=== PATIENT | male | born 1965 | race Caucasian/White ===

== ENCOUNTER 2017-12-03 16:05 | Observation (INO) | payer BC ==
[2017-12-03] VITALS (8 sets, daily range): BP systolic 114–162; BP diastolic 64–90; PULSE 99–128; RESP 18–20; TEMP 98.2–98.7; O2SAT 91–95
[~2017-12-03] VITALS: Ht 182.9 cm; Wt 96.5 kg
[~2017-12-03 16:05] MED LIST: AUGM875T3 PO; HYDR-3533 PO
--- NOTE | 2017-12-03 18:14 | PD ---
HPI Chief Complaint: Cold / Flu Symptoms Time Seen by Provider: 17:53 Travel History International Travel<30 days: No Contact w/Intl Traveler<30days: No Traveled to known affect area: No History of Present Illness HPI 82-year-old male presents to the ED for evaluation of nonproductive cough, shortness of breath. Gradual onset 2 days ago. He is a current smoker. He denies fever, chills, chest pain, palpitations, nausea, vomiting. He did not receive this years flu vaccine. He denies formal diagnosis of COPD. He does not use oxygen at home. PFSH Past Medical History Autoimmune Disease: No Cancer: No Cardiovascular Problems: No Cerebrovascular Accident: No Diabetes: No Diminished Hearing: No Endocrine: No Gastrointestinal Disorders: Yes GERD: Yes Genitourinary: No Headaches: No Hepatitis: No Hiatal Hernia: No Hypertension: No Immune Disorder: No Implanted Vascular Access Dvce: Yes Medical other: Yes (CURRENT INFECTIONS AROUND COLOSTOMY STOMA, SEIZURE DISORDER MANY YRS AGO) Musculoskeletal: Yes (right shoulder repaired then infected) Neurologic: Yes Psychiatric: No Reproductive: No Respiratory: No Integumentary: Yes (H/O MRSA) Immunizations Current: Yes Migraines: No Seizures: Yes (ETOH INDUCED? ANXIETY INDUCED?) Thyroid Disease: No Tetanus Vaccination: < 5 Years Past Surgical History Abdominal Surgery: Yes (COLOSTOMY: REVERSED 2011) AICD: No Arteriovenous Shunt: No Cardiac Surgery: No Ear Surgery: No Endocrine Surgery: No Eye Surgery: No Genitourinary Surgery: No Insulin Pump: No Joint Replacement: Yes Neurologic Surgery: No Oral Surgery: No Pacemaker: No Thoracic Surgery: No Other Surgery: Yes Social History Alcohol Use: No Tobacco Use: Yes (1.5 PPD) Substance Use: No Allergies-Medications (Allergen,Severity, Reaction): Coded Allergies: phenobarbital (Unverified Allergy, Severe, RASH, 12/03/17) vancomycin (Unverified Allergy, Mild, Rash, 12/03/17) Unsure at this time if Vanc induced rash or skin condition related. Patient rash did improve significantly after discontinuation of his IV Vanco. Would try rechallenge if needed clinically in future. daptomycin (Unverified Allergy, Unknown, 12/03/17) Allergic pneumonitis, fever and eosinophilia. Reported Meds & Prescriptions Reported Meds & Active Scripts Active Review of Systems Except as stated in HPI: all other systems reviewed are Neg Physical Exam Narrative GENERAL: Well-nourished, well-developed tachypneic white male in no acute distress. SKIN: Focused skin assessment warm/dry. HEAD: Normocephalic. EYES: No scleral icterus. No injection or drainage. NECK: Supple, trachea midline. No JVD or lymphadenopathy. CARDIOVASCULAR: Regular rate and rhythm without murmurs, gallops, or rubs. RESPIRATORY: Breath sounds tight with expiratory wheezing bilaterally. Wet cough. Digital clubbing noted. GASTROINTESTINAL: Abdomen soft, non-tender, nondistended. MUSCULOSKELETAL: No cyanosis, or edema. BACK: Nontender without obvious deformity. No CVA tenderness. Data Data Last Documented VS Vital Signs Date Time Temp Pulse Resp B/P (MAP) Pulse Ox O2 Delivery O2 Flow Rate FiO2 12/03/17 19:19 91 Room Air 12/03/17 19:17 128 20 12/03/17 18:48 2.00 12/03/17 16:06 98.7 118/76 (90) Orders Orders Complete Blood Count With Diff (12/03/17 18:02) Basic Metabolic Panel (Bmp) (12/03/17 18:02) Chest, Pa & Lat (12/03/17 18:02) Iv Access Insert/Monitor (12/03/17 18:02) Ecg Monitoring (12/03/17 18:02) Oxygen Administration (12/03/17 18:02) Oximetry (12/03/17 18:02) Electrocardiogram (12/03/17 18:02) Electrocardiogram (12/03/17 18:10) Sodium Chloride 0.9% Flush (Ns Flush) (12/03/17 18:15) Methylprednisolone So Succ Inj (Solumedr (12/03/17 18:15) Albuterol-Ipratropium Neb (Duoneb Neb) (12/03/17 18:15) Influenzae A/B Antigen (12/03/17 18:11) Blood Culture (12/03/17 18:41) Ct Pulmonary Angiogram (12/03/17 19:36) Admit Order (Ed Use Only) (12/03/17 19:52) Labs Laboratory Tests Test 12/03/17 17:58 White Blood Count 12.1 TH/MM3 Red Blood Count 5.47 MIL/MM3 Hemoglobin 16.9 GM/DL Hematocrit 49.3 % Mean Corpuscular Volume 90.0 FL Mean Corpuscular Hemoglobin 30.8 PG Mean Corpuscular Hemoglobin Concent 34.2 % Red Cell Distribution Width 12.3 % Platelet Count 171 TH/MM3 Mean Platelet Volume 9.1 FL Neutrophils (%) (Auto) 54.9 % Lymphocytes (%) (Auto) 33.3 % Monocytes (%) (Auto) 7.8 % Eosinophils (%) (Auto) 3.6 % Basophils (%) (Auto) 0.4 % Neutrophils # (Auto) 6.8 TH/MM3 Lymphocytes # (Auto) 4.0 TH/MM3 Monocytes # (Auto) 0.9 TH/MM3 Eosinophils # (Auto) 0.4 TH/MM3 Basophils # (Auto) 0.0 TH/MM3 CBC Comment DIFF FINAL Differential Comment Blood Urea Nitrogen 15 MG/DL Creatinine 1.00 MG/DL Random Glucose 88 MG/DL Calcium Level 8.8 MG/DL Sodium Level 136 MEQ/L Potassium Level 4.3 MEQ/L Chloride Level 102 MEQ/L Carbon Dioxide Level 28.2 MEQ/L Anion Gap 6 MEQ/L Estimat Glomerular Filtration Rate 78 ML/MIN MDM Medical Decision Making Medical Screen Exam Complete: Yes Emergency Medical Condition: Yes Differential Diagnosis COPD exacerbation versus pneumonia versus bronchitis versus influenza versus PE versus other Narrative Course 52-year-old smoker presents the ED for evaluation of 2 day history of productive cough, wheezing and shortness of breath. Gradual onset. Respiratory rate 18, 95% on room air on arrival. Patient was placed on 3L O2 by nasal cannula. There is course wheezing and reduced air movement in the bilateral lung andrade. Patient was administered IV Solu-Medrol and DuoNeb 3. EKG rate 102, sinus tachycardia. OK interval 149, QRS 96, QTC 366. Incomplete right BBB. No acute ST changes. Reviewed by Dr. Venegas. CXR: No acute disease per radiology read. CBC: WBC 12.1. CMP: Unremarkable. CTA negative for pulmonary embolism. On recheck O2 and percent on room air. Sats dip to 87-89% with talking and into the low 60s with walk testing. I discussed the patient with Dr. Venegas who recommends CTA to rule out PE. Negative per radiology read. I discussed the results of the workup and plan with the patient. He is initially reticent for admission but I explained the risks he acquiesced. Discussed patient with Dr. Carroll who agrees to accept the patient to the medicine service. Please see medicine notes for disposition. Scripts No Active Prescriptions or Reported Meds Shana Pearce Dec 03, 2017 18:13
[2017-12-03 18:15] LABS: AUTOMATED NEUTROPHIL # 6.8 TH/MM3 (1.8-7.7); BASOPHIL % 0.4 % (0.0-2.0); EOSINOPHIL # 0.4 TH/MM3 (0-0.4); EOSINOPHIL % 3.6 % (0.0-4.0); HEMATOCRIT 49.3 % (39.0-51.0); HEMOGLOBIN 16.9 GM/DL (13.0-17.0); LYMPH % 33.3 % (9.0-44.0); MEAN CORPUSCULAR HEMOGLOBIN 30.8 PG (27.0-34.0); MEAN CORPUSCULAR HGB CONC 34.2 % (32.0-36.0); MEAN PLATELET VOLUME 9.1 FL (7.0-11.0); MONO % 7.8 % (0.0-8.0); MONOCYTE # 0.9 TH/MM3 (0-0.9); NEUT % 54.9 % (16.0-70.0); PLATELET COUNT 171 TH/MM3 (150-450); RED BLOOD COUNT 5.47 MIL/MM3 (4.50-5.90); RED CELL DISTRIBUTION WIDTH 12.3 % (11.6-17.2); WHITE BLOOD COUNT 12.1 TH/MM3 (4.0-11.0)
[2017-12-03] MEDS ORDERED: methylPREDNISolone SOD SUCC 125 MG/2 ML VIAL IV PUSH ONE (18:15)
[2017-12-03] MEDS ORDERED: SODIUM CHLORIDE 0.9% FLUSH 10 ML FLUSH IVF PRN (18:15)
[2017-12-03 18:29] LABS: BICARBONATE 28.2 MEQ/L (21.0-32.0); CALCIUM 8.8 MG/DL (8.5-10.1)
[2017-12-03] MEDS: RESP: ALBUTEROL 2.5 MG/IPRATROPIUM 0.5 MG NEB (SCH) INH ×2 (18:35→18:36)
--- NOTE | 2017-12-03 18:56 | RADRPT ---
EXAM DATE/TIME: 12/03/2017 18:27 [facility] COMPARISON: No previous studies available for comparison. INDICATIONS : Cough and congestion for 3 days and history of smoking. MEDICAL HISTORY : None. SURGICAL HISTORY : None. ENCOUNTER: Initial ACUITY: 3 days PAIN SCORE: 2/10 LOCATION: Bilateral upper chest FINDINGS: PA and lateral views of the chest demonstrate the lungs to be symmetrically aerated without evidence of mass, infiltrate or effusion. The cardiomediastinal contours are unremarkable. Osseous structure s are intact. CONCLUSION: No acute disease. Jesus Cortez MD on December 03, 2017 at 18:53 Board Certified Radiologist. This report was verified electronically.
[2017-12-03] MEDS ORDERED: SODIUM CHLORIDE 0.9% FLUSH 10 ML FLUSH IV FLUSH PRN (20:00)
[2017-12-03] MEDS ORDERED: NALOXONE HCL 0.4 MG/ML AMP IV PUSH PRN (20:00)
[2017-12-03] MEDS ORDERED: RESP: ALBUTEROL 2.5 MG/IPRATROPIUM 0.5 MG NEB (PRN) NEB (20:00)
[2017-12-03] MEDS ORDERED: IOHEXOL 350 MG/ML 10 ML VIAL (for RAD DIAG) IVCONTRAST ONE (20:34)
[2017-12-03] MEDS ORDERED: SODIUM CHLORIDE 0.9% FLUSH 10 ML FLUSH IV FLUSH SCH (21:00)
--- NOTE | 2017-12-03 21:02 | RADRPT ---
EXAM DATE/TIME: 12/03/2017 20:26 [facility] COMPARISON: No previous studies available for comparison. INDICATIONS : Cough. Shortness of breath. IV CONTRAST: 75 cc Omnipaque 350 (iohexol) IV RADIATION DOSE: 16.04 CTDIvol (mGy) MEDICAL HISTORY : None SURGICAL HISTORY : None. ENCOUNTER: Initial ACUITY: 2 days PAIN SCALE: 5/10 LOCATION: Bilateral chest TECHNIQUE: Volumetric scanning of the chest was performed using a pulmonary embolism protocol MIP images were re constructed. Using automated exposure control and adjustment of the mA and/or kV according to patien t size, radiation dose was kept as low as reasonably achievable to obtain optimal diagnostic quality images. DICOM format image data is available electronically for review and comparison. Follow-up recommendations for detected pulmonary nodules are based at a minimum on nodule size and pa tient risk factors according to Fleischner Society Guidelines. FINDINGS: PULMONARY ARTERIES: No filling defects are seen in the pulmonary arteries through the segmental level. LUNGS: There is no consolidation or pneumothorax . No concerning pulmonary nodule is visualized. PLEURAE: There is no pleural thickening or pleural effusion. MEDIASTINUM: There is good visualization of the great vessels of the middle mediastinum. No evidence of mediastin al or hilar adenopathy/mass. MUSCULOSKELETAL: Within normal limits for patient age. MISCELLANEOUS: The visualized upper abdominal organs demonstrate no acute abnormality. CONCLUSION: 1. No filling defects to suggest pulmonary embolus. Mild emphysema. Jesus Cortez MD on December 03, 2017 at 20:57 Board Certified Radiologist. This report was verified electronically.
[2017-12-03] MEDS: RESP: ALBUTEROL 2.5 MG/IPRATROPIUM 0.5 MG NEB (SCH) NEB (21:34)
[2017-12-03] MEDS ORDERED: NICOTINE 21 MG/24 HR PATCH T-DERMAL ONE (22:15)
[2017-12-03] MEDS: BENZONATATE 100 MG CAP PO PRN (22:40)
[2017-12-04] MEDS: RESP: ALBUTEROL 2.5 MG/IPRATROPIUM 0.5 MG NEB (SCH) NEB (03:30)
[2017-12-04 04:00] VITALS: BP 115/67; PULSE 99; RESP 16; TEMP 97.4; O2SAT 95
[2017-12-04 05:47] LABS: AUTOMATED NEUTROPHIL # 5.1 TH/MM3 (1.8-7.7); BASOPHIL % 0.7 % (0.0-2.0); EOSINOPHIL % 0.1 % (0.0-4.0); HEMATOCRIT 45.1 % (39.0-51.0); LYMPHOCYTE # 0.6 TH/MM3 (1.0-4.8); MEAN CELL VOLUME 91.2 FL (80.0-100.0); MEAN CORPUSCULAR HEMOGLOBIN 30.3 PG (27.0-34.0); MEAN CORPUSCULAR HGB CONC 33.2 % (32.0-36.0); MEAN PLATELET VOLUME 9.5 FL (7.0-11.0); MONO % 1.1 % (0.0-8.0); MONOCYTE # 0.1 TH/MM3 (0-0.9); NEUT % 88.1 % (16.0-70.0); PLATELET COUNT 125 TH/MM3 (150-450); RED BLOOD COUNT 4.94 MIL/MM3 (4.50-5.90); RED CELL DISTRIBUTION WIDTH 12.3 % (11.6-17.2); WHITE BLOOD COUNT 5.9 TH/MM3 (4.0-11.0)
[2017-12-04 05:59] LABS: BICARBONATE 26.6 MEQ/L (21.0-32.0); CALCIUM 8.2 MG/DL (8.5-10.1)
[2017-12-04 06:10] LABS: CREATININE 1.3 MG/DL (0.60-1.30)
[2017-12-04] MEDS ORDERED: SODIUM CHLORIDE 0.9% FLUSH 10 ML FLUSH IV FLUSH PRN (07:30)
[2017-12-04 08:00] VITALS: BP 124/80; PULSE 113; PULSE 86; RESP 18; TEMP 97.4; O2SAT 95
[2017-12-04] MEDS ORDERED: RESP: ALBUTEROL 2.5 MG/IPRATROPIUM 0.5 MG NEB (SCH) NEB (08:00)
[2017-12-04] MEDS ORDERED: RESP: ALBUTEROL 2.5 MG/IPRATROPIUM 0.5 MG NEB (PRN) NEB (08:30)
[2017-12-04 08:44] VITALS: O2SAT 95
[2017-12-04] MEDS ORDERED: BUDESONIDE-FORMOTEROL 160/4.5 MCG INHALER INH SCH (09:00)
[2017-12-04] MEDS ORDERED: SODIUM CHLORIDE 0.9% FLUSH 10 ML FLUSH IV FLUSH SCH (09:00)
[2017-12-04] MEDS ORDERED: AZITHROMYCIN 250 MG TAB PO SCH (09:00)
[2017-12-04] MEDS ORDERED: methylPREDNISolone SOD SUCC 125 MG/2 ML VIAL IV PUSH SCH (09:00)
[2017-12-04 09:03] VITALS: PULSE 115
--- NOTE | 2017-12-04 09:26 | HHI.HP ---
[facility] No Primary Care Physician Admission Diagnosis COPD exacerbation, hypoxia Diagnoses: (1) COPD exacerbation Chief Complaint: Dyspnea Travel History International Travel<30 Days: No Contact w/Intl Traveler <30 Da: No Traveled to Known Affected Are: No Review of Systems Constitutional: DENIES: Fever, Chills, Night Sweats Eyes: DENIES: Blurred vision, Vision loss Ears, nose, mouth, throat: DENIES: Hearing loss Respiratory: COMPLAINS OF: Cough, Wheezing, Shortness of breath, DENIES: Sputum production Cardiovascular: DENIES: Chest pain, Palpitations, Dyspnea on Exertion, Lower Extremity Edema Gastrointestinal: DENIES: Abdominal pain, Constipation, Diarrhea, Nausea, Vomiting Genitourinary: DENIES: Urinary frequency, Urinary incontinence, Urgency, Hematuria, Dysuria, Nocturia Musculoskeletal: DENIES: Joint pain, Muscle aches Integumentary: DENIES: Pruritus, Rash Hematologic/lymphatic: DENIES: Bruising Neurologic: COMPLAINS OF: Headache Past Family Social History Past Medical History GERD COPD Past Surgical History Colostomy with reversal 2012 Right shoulder surgery Reported Medications None Allergies: Coded Allergies: phenobarbital (Unverified Allergy, Severe, RASH, 12/03/17) vancomycin (Unverified Allergy, Mild, Rash, 12/03/17) Unsure at this time if Vanc induced rash or skin condition related. Patient rash did improve significantly after discontinuation of his IV Vanco. Would try rechallenge if needed clinically in future. daptomycin (Unverified Allergy, Unknown, 12/03/17) Allergic pneumonitis, fever and eosinophilia. Family History Lung cancer Heart disease Social History Smokes 1.5 packs per day. Remote history of alcohol and illicit drug use. States that he has not used IV drugs in more than 20 years. Physical Exam Vital Signs Vital Signs Date Time Temp Pulse Resp B/P (MAP) Pulse Ox O2 Delivery O2 Flow Rate FiO2 12/04/17 09:03 115 12/04/17 08:44 95 Nasal Cannula 2.00 12/04/17 08:00 97.4 86 18 124/80 (95) 95 12/04/17 04:00 97.4 99 16 115/67 (83) 95 12/03/17 22:16 98.2 99 18 114/64 (81) 94 12/03/17 22:06 110 12/03/17 22:00 94 Nasal Cannula 3.00 12/03/17 21:40 103 20 162/90 (114) 95 Nasal Cannula 2.00 12/03/17 21:35 94 Nasal Cannula 2.00 12/03/17 19:19 91 Room Air 12/03/17 19:17 128 20 91 Room Air 12/03/17 18:48 93 Nasal Cannula 2.00 12/03/17 18:11 94 Nasal Cannula 3.00 12/03/17 18:00 92 Nasal Cannula 3.00 12/03/17 17:38 18 95 Room Air 12/03/17 16:06 98.7 108 18 118/76 (90) 95 Physical Exam GENERAL: Well-nourished, well-developed male in no acute distress. HEENT: Normocephalic, atraumatic. Pupils equal, round and reactive. Extraocular movements intact. No scleral icterus. No injection or drainage. Oropharynx is clear. Mucous membranes are moist. CARDIOVASCULAR: Regular rate and rhythm without murmurs, gallops, or rubs. RESPIRATORY: Diffuse wheeze, rhonchi. Breathing is non-labored. GASTROINTESTINAL: Abdomen soft, non-tender, nondistended. EXTREMITIES: No lower extremity edema. No calf tenderness. PSYCH: Alert and oriented x 3. Laboratory Laboratory Tests Test 12/03/17 17:58 12/04/17 04:55 White Blood Count 12.1 5.9 Red Blood Count 5.47 4.94 Hemoglobin 16.9 15.0 Hematocrit 49.3 45.1 Mean Corpuscular Volume 90.0 91.2 Mean Corpuscular Hemoglobin 30.8 30.3 Mean Corpuscular Hemoglobin Concent 34.2 33.2 Red Cell Distribution Width 12.3 12.3 Platelet Count 171 125 Mean Platelet Volume 9.1 9.5 Neutrophils (%) (Auto) 54.9 88.1 Lymphocytes (%) (Auto) 33.3 10.0 Monocytes (%) (Auto) 7.8 1.1 Eosinophils (%) (Auto) 3.6 0.1 Basophils (%) (Auto) 0.4 0.7 Neutrophils # (Auto) 6.8 5.1 Lymphocytes # (Auto) 4.0 0.6 Monocytes # (Auto) 0.9 0.1 Eosinophils # (Auto) 0.4 0.0 Basophils # (Auto) 0.0 0.0 CBC Comment DIFF FINAL DIFF FINAL Differential Comment Blood Urea Nitrogen 15 17 Creatinine 1.00 1.30 Random Glucose 88 189 Calcium Level 8.8 8.2 Sodium Level 136 138 Potassium Level 4.3 3.9 Chloride Level 102 101 Carbon Dioxide Level 28.2 26.6 Anion Gap 6 10 Estimat Glomerular Filtration Rate 78 58 Date/Time Source Procedure Growth Status 12/03/17 17:55 Blood Line Aerobic Blood Culture Pending Received 12/03/17 17:55 Blood Line Anaerobic Blood Culture Pending Received 12/03/17 18:35 Nasal Washing Influenza Types A,B Antigen (JANY) - Final NEGATIVE FOR FLU A AND B ANTIGEN.... Complete Result Diagram: 12/04/17 0455 12/04/17 [address] Angiography 12/03/17 1936 Signed Impressions: Service Date/Time: Sunday, December 03, 2017 20:26 - CONCLUSION: 1. No filling defects to suggest pulmonary embolus. Mild emphysema. Jesus Cortez MD Chest X-Ray 12/03/17 180 Signed Impressions: Service Date/Time: Sunday, December 03, 2017 18:27 - CONCLUSION: No acute disease. MD Tae Liui VTE Risk Assessment Caprini VTE Risk Assessment: No/Low Risk (score <= 1) Caprini Risk Assessment Model Point Value = 1 Point Value = 2 Point Value = 3 Point Value = 5 Age 41-60 Minor surgery BMI > 25 kg/m2 Swollen legs Varicose veins or History of unexplained or recurrent spontaneous Oral contraceptives or hormone replacement Sepsis (< 1 month) Serious lung disease, including pneumonia (< 1 month) Abnormal pulmonary function Acute myocardial infarction Congestive heart failure (< 1 month) History of inflammatory bowel disease Medical patient at bed rest Age 61-74 Arthroscopic surgery Major open surgery (> 45 min) Laparoscopic surgery (> 45 min) Malignancy Confined to bed (> 72 hours) Immobilizing plaster cast Central venous access Age >= 75 History of VTE Family history of VTE Factor V Leiden Prothrombin [id number] Lupus anticoagulant Anticardiolipin antibodies Elevated serum homocysteine Heparin-induced thrombocytopenia Other congenital or acquired thrombophilia Stroke (< 1 month) Elective arthroplasty Hip, pelvis, or leg fracture Acute spinal cord injury (< 1 month) Prophylaxis Regimen Total Risk Factor Score Risk Level Prophylaxis Regimen 0-1 Low Early ambulation 2 Moderate Order ONE of the following: *Sequential Compression Device (SCD) *Heparin 5000 units SQ BID 3-4 Higher Order ONE of the following medications: *Heparin 5000 units SQ TID *Enoxaparin/Lovenox 40 mg SQ daily (WT < 150 kg, CrCl > 30 mL/min) *Enoxaparin/Lovenox 30 mg SQ daily (WT < 150 kg, CrCl > 10-29 mL/min) *Enoxaparin/Lovenox 30 mg SQ BID (WT < 150 kg, CrCl > 30 mL/min) AND/OR *Sequential Compression Device (SCD) 5 or more Highest Order ONE of the following medications: *Heparin 5000 units SQ TID (Preferred with Epidurals) *Enoxaparin/Lovenox 40 mg SQ daily (WT < 150 kg, CrCl > 30 mL/min) *Enoxaparin/Lovenox 30 mg SQ daily (WT < 150 kg, CrCl > 10-29 mL/min) *Enoxaparin/Lovenox 30 mg SQ BID (WT < 150 kg, CrCl > 30 mL/min) AND *Sequential Compression Device (SCD) Assessment and Plan Assessment and Plan 1. COPD exacerbation: Continue steroids, DuoNeb, supplemental oxygen, Symbicort. Check respiratory home oxygen walk test. 2. Tobacco abuse: Counseled to quit smoking. Nicotine patch. 3. DVT prophylaxis: Ambulation. The patient is anxious to be discharged home. We will evaluate his respiratory status throughout the day and consider discharge later today if he is stable on room air. Dominik Morton MD Dec 04, 2017 09:26
[2017-12-04] MEDS ORDERED: INFLUENZA VIRUS VACCINE (QUADRIVALENT) 0.5 ML SYR IM ONE (10:00)
[2017-12-04] MEDS ORDERED: PRED5PAK PO (10:05)
[2017-12-04] MEDS ORDERED: Albuterol-Ipratropium Neb NEB (10:05)
[2017-12-04] MEDS ORDERED: AZIT250T3 PO (10:05)
[2017-12-04] MEDS ORDERED: NEBULIZER1 MI1 (10:05)
[2017-12-04] MEDS ORDERED: VENTAER INH (10:05)
[2017-12-04] MEDS ORDERED: Budeson-Formot 160-4.5 Mcg Inh INH (10:05)
--- NOTE | 2017-12-04 10:07 | HHI.DCPOC ---
Discharge Care Plan Diagnosis: (1) COPD exacerbation (2) Tobacco abuse Goals to Promote Your Health * To prevent worsening of your condition and complications * To maintain your health at the optimal level Directions to Meet Your Goals Take your medications as prescribed Follow your dietary instruction Follow activity as directed Keep your appointments as scheduled Take your immunizations and boosters as scheduled If your symptoms worsen call your PCP, if no PCP go to Urgent Care Center or Emergency Room Smoking is Dangerous to Your Health. Avoid second hand smoke Call the 24-hour hour crisis hotline for domestic abuse at Dominik Morton MD Dec 04, 2017 10:07
[2017-12-04] MEDS: BENZONATATE 100 MG CAP PO PRN (11:54)
[2017-12-04 17:43] LABS: HEMOGLOBIN A1C 5.8 % (4.3-6.0)
--- NOTE | 2017-12-05 08:33 | EKG ---
Date Performed: 12/03/2017 Time Performed: 18:21:28 PTAGE: 52 years EKG: SINUS TACHYCARDIA INCOMPLETE RIGHT BUNDLE BRANCH BLOCK Compared to previous tracing rate is faster ABNORMAL RHYTHM ECG PREVIOUS TRACING : 09/01/2014 22.52 DOCTOR: Elvis Tolbert Interpretating Date/Time 12/05/2017 08:31:16
== END 2017-12-04 12:30 | disposition home or self-care (01) ==
LOC: PHED 16:05 → PHEDA 19:53 → PH3B 21:31
PROVIDERS: ADMIT Family Medicine; ATTEND Family Medicine
DX: J44.1 Chronic obstructive pulmonary disease with (acute) exacerbation (principal); R00.0 Tachycardia, unspecified; I45.10 Unspecified right bundle-branch block; K21.9 Gastro-esophageal reflux disease without esophagitis; G40.909 Epilepsy, unspecified, not intractable, without status epilepticus; F17.200 Nicotine dependence, unspecified, uncomplicated
CPT/HCPCS: 71046; 71275; 80048; 83036; 85025; 87040; 87804; 90471; 90686; 93005; 94150; 94618; 94640; 94664; 96374; 96376; 97162; 99285; G0378; G8987; G8988; J2930; Q9967; G0008; Q2038

== ENCOUNTER 2018-03-13 12:15 | Emergency (ER) | payer BC ==
[~2018-03-13] VITALS: Ht 182.9 cm; Wt 92.0 kg
[~2018-03-13 12:15] MED LIST changes: -AUGM875T3 PO; +AZIT250T3 PO; +Albuterol-Ipratropium Neb NEB; +Budeson-Formot 160-4.5 Mcg Inh INH; -HYDR-3533 PO; +NEBULIZER1 MI1; +PRED5PAK PO; +VENTAER INH
[2018-03-13 12:33] VITALS: BP 123/75; PULSE 94; RESP 16; TEMP 98.7; O2SAT 96
[2018-03-13] MEDS ORDERED: NYST1OIN TOPICAL (13:38)
[2018-03-13] MEDS ORDERED: MEDR4PAK PO (13:38)
[2018-03-13] MEDS ORDERED: PERM5CRE TOPICAL (13:39)
--- NOTE | 2018-03-13 13:40 | PD ---
HPI Chief Complaint: Skin Problem Time Seen by Provider: 13:23 Travel History International Travel<30 days: No Contact w/Intl Traveler<30days: No Traveled to known affect area: No History of Present Illness HPI 52-year-old male with history of questionable COPD presents emergency department complaining of intense itching of the skin from head to toe for 3 weeks. Says that he has a history of chronic itching however, says the last 3 weeks have been have been worse. He denies any new soaps, lotions, foods, hotel stays or new furniture. He denies any exposures. Denies any contact with others with similar symptoms. Says he does have a dog but has had this dog for 6-7 years and does not suspect any problems with this. He denies fevers or chills. 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 PFSH Past Medical History Autoimmune Disease: No Cancer: No Cardiovascular Problems: No COPD: Yes Cerebrovascular Accident: No Diabetes: No Diminished Hearing: No Endocrine: No Gastrointestinal Disorders: Yes GERD: No Genitourinary: No Headaches: No Hepatitis: No Hiatal Hernia: No Hypertension: No Immune Disorder: No Implanted Vascular Access Dvce: Yes Medical other: Yes (CURRENT INFECTIONS AROUND COLOSTOMY STOMA, SEIZURE DISORDER MANY YRS AGO) Musculoskeletal: Yes (right shoulder repaired then infected) Neurologic: Yes Psychiatric: No Reproductive: No Respiratory: Yes (EARLY COPD) Integumentary: Yes (H/O MRSA) Immunizations Current: Yes Migraines: No Seizures: Yes (ETOH INDUCED? ANXIETY INDUCED?) Sleep Apnea: Yes (snores) Thyroid Disease: No ?: Not Past Surgical History Abdominal Surgery: Yes (COLOSTOMY: REVERSED 2011) AICD: No Arteriovenous Shunt: No Cardiac Surgery: No Ear Surgery: No Endocrine Surgery: No Eye Surgery: No Genitourinary Surgery: No Insulin Pump: No Joint Replacement: No Neurologic Surgery: No Oral Surgery: No Pacemaker: No Thoracic Surgery: No Other Surgery: Yes Social History Alcohol Use: No Tobacco Use: Yes (1.5 PPD) Substance Use: No Allergies-Medications (Allergen,Severity, Reaction): Coded Allergies: phenobarbital (Unverified Allergy, Severe, RASH, 03/13/18) vancomycin (Unverified Allergy, Mild, Rash, 03/13/18) Unsure at this time if Vanc induced rash or skin condition related. Patient rash did improve significantly after discontinuation of his IV Vanco. Would try rechallenge if needed clinically in future. daptomycin (Unverified Allergy, Unknown, 03/13/18) Allergic pneumonitis, fever and eosinophilia. Reported Meds & Prescriptions Reported Meds & Active Scripts Active Permethrin Topical 5% (Permethrin) 5% Cream 1 Applic TOPICAL ONCE Nystatin-Triamcinolone 100,000-0.1 Unit/Gm Oint 1 Applic TOPICAL Q12HR 7 Days Medrol Dosepak (Methylprednisolone) 4 Mg Dspk 4 Mg PO DIRECTED Per Pharmacist direction Review of Systems Except as stated in HPI: all other systems reviewed are Neg Physical Exam Narrative GENERAL: Well-nourished, well-developed patient, in mild distress SKIN: Focused skin assessment warm/dry. Patient has diffuse ichthyosis, scattered 2 mm scabbing from neck to feet. More concentrated rash on the feet. HEAD: Normocephalic. Atraumatic. EYES: No scleral icterus. No injection or drainage. PERRLA, EOMI No obvious involvement of the ears, tympanic membranes pearly tracy without bulging or erythema THROAT: No pharyngeal injection, exudates, or tonsillar hypertrophy. Airway is patent. NECK: Supple, trachea midline. No JVD or lymphadenopathy. No meningismus. CARDIOVASCULAR: Regular rate and rhythm without murmurs, gallops, or rubs. RESPIRATORY: Breath sounds equal bilaterally. No accessory muscle use. No wheezes, rales, or rhonchi MUSCULOSKELETAL: No cyanosis, or edema. BACK: Nontender without obvious deformity. No CVA tenderness. Data Data Last Documented VS Vital Signs Date Time Temp Pulse Resp B/P (MAP) Pulse Ox O2 Delivery O2 Flow Rate FiO2 03/13/18 12:33 98.7 94 16 123/75 (91) 96 Orders Orders Methylprednisolone So Succ Inj (Solumedr (03/13/18 13:45) MDM Medical Decision Making Medical Screen Exam Complete: Yes Emergency Medical Condition: Yes Differential Diagnosis Scabies, insect bites, ichthyosis, allergic reaction, contact dermatitis Narrative Course 52-year-old male with history of questionable COPD presents emergency department complaining of intense itching of the skin from head to toe for 3 weeks. Says that he has a history of chronic itching however, says the last 3 weeks have been have been worse. He denies any new soaps, lotions, foods, hotel stays or new furniture. He denies any exposures. Denies any contact with others with similar symptoms. Says he does have a dog but has had this dog for 6-7 years and does not suspect any problems with this. He denies fevers or chills. 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 He denies chronic medical issues medication use. Vital signs are stable. Brief review of the EMR demonstrates patient had a COPD exacerbation recently. In addition, his history of hepatitis C but I do not see where this was diagnosed. It appears that he also has a history of eosinophilia which likely is contributing to his symptoms. Physical exam findings most consistent with scabies versus bedbugs versus intense ichthyosis versus contact dermatitis. Solu-Medrol 125 administered in the emergency department today. He will be treated with permethrin cream, nystatin with triamcinolone, and oral prednisone. He is strongly advised to follow-up with a crusher assembler for further evaluation and treatment. Return for worsening or persistent symptoms. Diagnosis Primary Impression: Rash Referrals: [facility] Realtime Captioner Departure Forms: Tests/Procedures, Work Release Enter return to work date: March 15, 2018 Additional Instructions: Apply the permethrin cream from head to toe. Leave on for 8-10 hours. Wash off in the morning. You may repeat in 7-10 days if the lesions persist. Apply the nystatin/triamcinolone ointment to the areas that are most bothersome up to twice a day. After permethrin use I recommend you apply moisturizer to the skin to reduce drying after showers daily. Avoid hot showers. I highly recommend you follow-up with a crusher assembler for further evaluation and treatment as we cannot provide the services they do. Take all medication as prescribed. Scripts Permethrin Topical 5% (Permethrin Topical 5%) 5% Cream 1 APPLIC TOPICAL ONCE for Rash, #1 TUBE 0 Refills Prov: Izzy Delgado DO 03/13/18 Nystatin-Triamcinolone (Nystatin-Triamcinolone) 100,000-0.1 Unit/Gm Oint 1 APPLIC TOPICAL Q12HR for Infection for 7 Days, #15 GM 0 Refills Prov: Izzy Delgado DO 03/13/18 Methylprednisolone Dosepak (Medrol Dosepak) 4 Mg Dspk 4 MG PO DIRECTED, #1 DSPK 0 Refills Per Pharmacist direction Prov: Izzy Delgado DO 03/13/18 Disposition: 01 DISCHARGE HOME Condition: Stable Simi Luong March 13, 2018 13:40
[2018-03-13] MEDS ORDERED: methylPREDNISolone SOD SUCC 125 MG/2 ML VIAL IM ONE (13:45)
== END 2018-03-13 13:55 | disposition home or self-care (01) ==
LOC: PHEFT 12:15
DX: R21 Rash and other nonspecific skin eruption (principal); D72.1 Eosinophilia; Z72.0 Tobacco use
CPT/HCPCS: 99283; J2930